=== PATIENT | male | born 1970 | race Two or more races ===

== ENCOUNTER 2017-10-25 04:23 | Emergency (ER) | payer OTHER ==
[~2017-10-25] VITALS: Ht 175.3 cm; Wt 90.7 kg
[2017-10-25] MEDS ORDERED: PERCOCET 5-3251 EACH PO (07:05)
[2017-10-25] MEDS ORDERED: TAMS0.4C PO (07:05)
[2017-10-25] MEDS ORDERED: KETO10TA2 PO (07:05)
[2017-10-25] MEDS ORDERED: CIPRO500 MG PO (07:05)
== END 2017-10-25 07:13 | disposition home or self-care (01) ==
LOC: ER 04:23
DX: N20.0 Calculus of kidney (principal)